=== PATIENT | male | born 1995 | race Caucasian/White ===

== ENCOUNTER 2018-11-12 13:26 | Emergency (ER) | payer SELFPAY ==
[~2018-11-12] VITALS: Ht 195.6 cm; Wt 89.1 kg
[2018-11-12 13:47] VITALS: Ht 195.6 cm; Wt 89.1 kg
[2018-11-12] MEDS ORDERED: TORADOL10 MG PO (16:39)
[2018-11-12 17:18] VITALS: BP 131/93
== END 2018-11-12 17:19 | disposition home or self-care (01) ==
LOC: D.ER 13:26
DX: M25.561 Pain in right knee (principal); V43.62XA Car passenger injured in collision with other type car in traffic accident, initial encounter; Y93.89 Activity, other specified; Y92.410 Unspecified street and highway as the place of occurrence of the external cause